=== PATIENT | female | born 1970 | race Hispanic/Latino ===

== ENCOUNTER 2022-12-20 13:00 | Outpatient (RCR) | payer OTHER | END 2022-12-22 | LOC: PT 13:00 | PROVIDERS: ATTEND Specialist | DX: M75.41 Impingement syndrome of right shoulder (principal); M75.01 Adhesive capsulitis of right shoulder ==

== ENCOUNTER 2023-01-13 09:00 | Outpatient (RCR) | payer OTHER | END 2023-01-22 | LOC: OT 09:00 | PROVIDERS: ATTEND Specialist | DX: M75.41 Impingement syndrome of right shoulder (principal); M75.01 Adhesive capsulitis of right shoulder ==

== ENCOUNTER 2023-01-27 13:00 | Outpatient (RCR) | payer OTHER | END 2023-02-21 | LOC: OT 13:00 | PROVIDERS: ATTEND Specialist | DX: M75.41 Impingement syndrome of right shoulder (principal); M75.01 Adhesive capsulitis of right shoulder ==